=== PATIENT | female | born 1935 | race Caucasian/White ===

== ENCOUNTER 2019-02-16 07:34 | Day surgery (SDC) | payer MEDICARE, OTHER ==
[~2019-02-16 07:34] MED LIST: Lactated Ringers 1,000 ML IV SCH
[2019-02-16] MEDS ORDERED: Lidocaine 1% PF 2 ML SDV INJECT ONE (07:35)
[2019-02-16] MEDS ORDERED: Propofol 200 MG/20 ML SDV IV ONE (07:35)
--- NOTE | 2019-02-16 09:20 | PCM.OPNOTE ---
- General Post-Op/Procedure Note Date of Surgery/Procedure: 02/16/19 Operative Procedure(s): c scope Findings: diverticulosis Pre Op Diagnosis: hx of colon polyp Post-Op Diagnosis: diverticulosis Anesthesia Technique: FLORIAN Primary Surgeon: Juan Carlson Anesthesia Provider: Kristian Schaefer Complications: None Condition: Good Free Text/Narrative:: see dictation
--- NOTE | 2019-02-16 10:25 | OR ---
DATE OF OPERATION: 02/16/2019 SURGEON: Juan Carlson MD PROCEDURE PERFORMED: Colonoscopy. PREOPERATIVE DIAGNOSIS: Personal history of colon polyps. POSTOPERATIVE DIAGNOSES: Redundant colon and diverticulosis. INDICATIONS FOR PROCEDURE: This is an 83-year-old white female who presents for followup scope. She has a personal history of polyps. She was offered and accepted same. DESCRIPTION OF OPERATION: After an excellent IV sedation was administered, digital rectal exam was performed. Flexible colonoscope was inserted and we got to approximately the hepatic flexure. At this point, due to the patient's redundancy of her colon, we were unable to manipulate the scope beyond this point despite maneuvers such as repositioning her and anterior abdominal wall pressure. The scope was then removed. The prep for the area that we examined was excellent. The following findings were noted: Transverse colon was unremarkable. Descending colon and sigmoid, moderate diverticulosis. Rectum and anus, unremarkable. History of her polyp was in the area of the sigmoid. We will be obtaining a contrast study. /[id number] MIKE/MATTHEW
== END 2019-02-16 10:19 | disposition home or self-care (01) ==
LOC: FB.SDS 07:34
PROVIDERS: ATTEND Surgery
DX: Z12.11 Encounter for screening for malignant neoplasm of colon (principal); K57.30 Diverticulosis of large intestine without perforation or abscess without bleeding; Q43.8 Other specified congenital malformations of intestine; E11.42 Type 2 diabetes mellitus with diabetic polyneuropathy; E78.00 Pure hypercholesterolemia, unspecified; M54.16 Radiculopathy, lumbar region; Z88.0 Allergy status to penicillin; Z86.010 Personal history of colon polyps; Z79.84 Long term (current) use of oral hypoglycemic drugs; Z79.899 Other long term (current) drug therapy
CPT/HCPCS: 00811; 82962; G0105; J2001; J2704; J7120

== ENCOUNTER 2021-04-03 14:29 | Observation (INO) | payer MEDICARE, OTHER ==
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
[2021-04-03] MEDS ORDERED: Sodium Chloride 0.9% 1,000 ML IV ONE (14:52)
[2021-04-03] MEDS: Sodium Chloride 0.9% 10 ML Syringe FLUSH PRN ×2 (15:47→16:20)
--- NOTE | 2021-04-03 15:55 | CT ---
INDICATION: Confusion. CT HEAD WITHOUT CONTRAST: Spiral 3.75 mm axial sections were obtained through the brain without contrast with axial, sagittal and coronal reconstructions 04/03/21 and compared with previous examination dated 03/26/11. Total exam DLP was 1373.85 milligray-cm. Nasal septal deviation to the right is noted. For the most part, the paranasal sinuses were well aerated with one anteriorly located left ethmoidal air cell showing thickening of the lining. The mastoid air cells were well aerated. No cranial abnormality was identified. The orbits appear to be intact. No shift of midline structures was noted. Mildly progressive white matter changes compatible with mild microvascular disease are noted, although other cause of leukoencephalopathy cannot be excluded. No other abnormal areas of density were identified. Internal carotid artery calcifications are noted. Ventricles are prominent especially the left compatible with moderate degree of central atrophy. Slightly increased prominence of the ventricles is noted compared with the previous study compatible with mild degree of progression of central atrophy. No other abnormal areas of density were identified. No bleeding site or hematoma was seen. IMPRESSION: 1. Cerebrovascular disease with white matter changes compatible with a mild degree of microvascular disease - slightly progressive. 2. Slightly progressive moderate central atrophy - ventricles are again noted to be asymmetrical - the left lateral ventricle is larger which could represent slightly more severe atrophy on the left, but also could represent an anatomic variant. 3. No acute intracranial abnormality. Report was called to Dr. Coughlin at 1539 hours 04/03/21. [facility]
[2021-04-03] MEDS ORDERED: cefTRIAXone 1 GM in Sodium Chloride 0.9% 50 ML IV ONE (16:10)
[2021-04-03] MEDS ORDERED: Acetaminophen 325 MG Tab PO PRN (17:55)
[2021-04-03] MEDS ORDERED: Ondansetron 4 MG/2 ML SDV IV PRN (17:55)
[2021-04-03] MEDS: Sodium Chloride 0.9% 1,000 ML IV SCH (18:13)
[2021-04-04] MEDS: Sodium Chloride 0.9% 1,000 ML IV SCH (03:36)
[2021-04-04] MEDS ORDERED: SEMAGLUTIDE SQ SCH (09:30)
[2021-04-04] MEDS ORDERED: Sulfamethoxazole/Trimethoprim 400-80 MG Tab PO SCH (10:00)
[2021-04-04] MEDS ORDERED: metFORMIN 1,000 MG Tab *PTOM PO SCH (10:00)
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
[2021-04-04] MEDS ORDERED: PREGABALIN 150 MG PO SCH (21:00)
== END 2021-04-04 11:40 | disposition home or self-care (01) ==
LOC: FB.ED 14:29 → FB.MS 18:04
PROVIDERS: ADMIT Emergency Medicine; ATTEND Family Medicine
DX: R41.0 Disorientation, unspecified (principal); N39.0 Urinary tract infection, site not specified; R53.1 Weakness; E86.0 Dehydration; E78.5 Hyperlipidemia, unspecified; E11.9 Type 2 diabetes mellitus without complications; G60.9 Hereditary and idiopathic neuropathy, unspecified; R41.89 Other symptoms and signs involving cognitive functions and awareness; M48.061 Spinal stenosis, lumbar region without neurogenic claudication; M19.90 Unspecified osteoarthritis, unspecified site; E66.9 Obesity, unspecified; Z68.25 Body mass index [BMI] 25.0-25.9, adult; Z79.84 Long term (current) use of oral hypoglycemic drugs; Z79.899 Other long term (current) drug therapy; Z98.890 Other specified postprocedural states; Z88.0 Allergy status to penicillin; Z86.010 Personal history of colon polyps
CPT/HCPCS: 36415; 70450; 80048; 80053; 81001; 83735; 84484; 85025; 86140; 87040; 87086; 93005; 96374; 99285; A9270; J0696; J7030; U0002; G0378

== ENCOUNTER 2023-01-12 10:09 | Inpatient (IN) | payer MEDICARE ==
[2023-01-12] MEDS: Sodium Chloride 0.9% 10 ML Syringe FLUSH PRN ×3 (10:27→15:55)
[2023-01-12 10:58] LABS: BASOPHILS PERCENT AUTO 0.5 % (0.2-1.5); EOSINOPHILS PERCENT AUTO 0.1 % (0.6-8.1); HEMATOCRIT 43.2 % (34.2-48.2); HEMOGLOBIN 14.5 g/dL (11.4-15.5); LYMPHOCYTES ABSOLUTE AUTO 1.2 x10-3/uL (1.0-4.4); LYMPHOCYTES PERCENT AUTO 11.9 % (18.4-52.1); MEAN CORPUSCULAR HEMOGLOBIN 29.5 pg (23.9-33.9); MEAN CORPUSCULAR HGB CONC 33.5 g/dL (31.9-34.8); MEAN CORPUSCULAR VOLUME 87.9 fL (76.7-100.5); MEAN PLATELET VOLUME 8.5 fL (7.1-12.4); MONOCYTES ABSOLUTE AUTO 0.6 x10-3/uL (0.3-1.0); MONOCYTES PERCENT AUTO 6.2 % (4.4-15.7); NEUTROPHILS PERCENT AUTO 81.3 % (30.8-76.2); PLATELET COUNT,PLT 261 x10(3)uL (151-488); RED BLOOD CELL COUNT 4.91 x10(6)uL (3.60-5.20); RED CELL DISTRIBUTION WIDTH 14.7 % (12.3-16.5); WHITE BLOOD CELL COUNT,WBC 9.8 x10-3/uL (3.0-10.3)
[2023-01-12 11:01] LABS: BLOOD UREA NITROGEN,BUN 20 mg/dL (7-18); CALCIUM 9.2 mg/dL (8.6-10.2); CARBON DIOXIDE,CO2 32 mmol/L (21-32); CHLORIDE,CL 99 mmol/L (100-110); CREATININE 0.8 mg/dL (0.55-1.02); EST CRCL DRUG DOSING (CG) 43.59 mL/min; ESTIMATED GFR 72 mL/min (>60); GLUCOSE RANDOM 240 mg/dL (80-116); POTASSIUM,K 4.3 mmol/L (3.5-5.3); SODIUM,NA 139 mmol/L (135-145)
[2023-01-12 11:04] LABS: BASE EXCESS VENOUS,POC 5 mmol/L (-2 - 3+); PCO2 VENOUS,POC 46 mmHg (41-51); PH VENOUS,POC 7.43 pH Units (7.32-7.43)
[2023-01-12 11:06] LABS: A/G RATIO 1.1; ALANINE AMINOTRANSFERASE,ALT 31 U/L (12-36); ALBUMIN 3.8 g/dL (3.2-4.6); ALKALINE PHOSPHATASE 126 IU/L (56-112); ASPARTATE AMNIOTRANSFERASE,AST 18 IU/L (5-25); BILIRUBIN TOTAL 0.6 mg/dL (0.1-1.3); PROTEIN TOTAL,TP 7.4 g/dL (6.0-8.0)
[2023-01-12 11:09] LABS: MAGNESIUM 1.2 mg/dL (1.8-2.5); TROPONIN I 5.6 pg/mL (4.0-60.3)
[2023-01-12 11:11] LABS: C-REACTIVE PROTEIN 5.3 mg/dL (0.5-0.9)
[2023-01-12] MEDS ORDERED: Sodium Chloride 0.9% 500 ML IV ONE (11:25)
[2023-01-12 11:26] LABS: CORONAVIRUS COVID-19 NAA NEGATIVE (NEGATIVE); INFLUENZA A NAA NEGATIVE (NEGATIVE); INFLUENZA B NAA NEGATIVE (NEGATIVE)
[2023-01-12 11:41] LABS: BILIRUBIN,URINE NEGATIVE (NEGATIVE); GLUCOSE,URINE 250 mg/dL (NORMAL); KETONES,URINE 15 mg/dL (NEGATIVE); LEUKOCYTE ESTERASE,URINE NEGATIVE (NEGATIVE); NITRITE,URINE NEGATIVE (NEGATIVE); OCCULT BLOOD,URINE NEGATIVE (NEGATIVE); PROTEIN,URINE NEGATIVE (NEGATIVE); UROBILINOGEN,URINE NORMAL (NEGATIVE)
[2023-01-12 11:42] LABS: APPEARANCE,URINE CLEAR (CLEAR); BACTERIA,URINE OCCASIONAL (NS); COLOR,URINE YELLOW (YELLOW); RBC,URINE 0-5 (0-5); SQUAMOUS EPITHELIAL CELLS,UR FEW (NS,R,O); WBC,URINE 0-5 (0-5)
[2023-01-12] MEDS ORDERED: Iopamidol 755 Mg/ML 100 ML Bottle IV ONE (12:00)
[2023-01-12] MEDS ORDERED: Ibuprofen 200 MG Tab PO PRN (13:14)
[2023-01-12] MEDS ORDERED: cefTRIAXone 1 GM in Sodium Chloride 0.9% 50 ML IV SCH (13:15)
[2023-01-12] MEDS ORDERED: Acetaminophen 500 MG Tab PO PRN (13:15)
[2023-01-12] MEDS ORDERED: 50% Dextrose in Water 50 ML Syringe IVPUSH PRN (13:16)
[2023-01-12] MEDS ORDERED: Glucagon,Human Recombinant 1 MG Vial IM PRN (13:16)
[2023-01-12] MEDS: cefTRIAXone 1 GM Vial IVPUSH SCH (14:36)
[2023-01-12] MEDS: Azithromycin 500 MG in Sodium Chloride 0.9% 250 ML IV SCH (14:45)
[2023-01-12] MEDS ORDERED: Magnesium Sulfate/Water 2 GM in Premix Bag 1 BAG IV ONE (15:00)
[2023-01-12] MEDS: Insulin Lispro 100 Unit/ML 3 ML KwikPen SUBCUT SCH ×2 (18:45→19:32)
[2023-01-12] MEDS: Nystatin Topical Powder 15 GM Bottle TOP SCH ×2 (19:48→23:59)
[2023-01-12] MEDS: guaiFENesin 600 MG Tab.ER PO SCH (20:03)
[2023-01-12] MEDS: Ibuprofen 400 MG Tab PO SCH (20:03)
[2023-01-12] MEDS: Saccharomyces Boulardii (Probiotic) 250 MG Cap PO SCH (20:07)
[2023-01-12] MEDS: Pregabalin 75 MG Cap PO SCH (20:08)
[2023-01-13] MEDS: Pregabalin 75 MG Cap PO SCH ×3 (00:26→20:16)
[2023-01-13 06:51] LABS: BLOOD UREA NITROGEN,BUN 17 mg/dL (7-18); BUN/CREATININE RATIO 21.3 (9-20); CALCIUM 8.9 mg/dL (8.6-10.2); CARBON DIOXIDE,CO2 33 mmol/L (21-32); CHLORIDE,CL 98 mmol/L (100-110); CREATININE 0.8 mg/dL (0.55-1.02); EST CRCL DRUG DOSING (CG) 43.59 mL/min; ESTIMATED GFR 72 mL/min (>60); GLUCOSE RANDOM 266 mg/dL (80-116); MAGNESIUM 1.8 mg/dL (1.8-2.5); POTASSIUM,K 3.6 mmol/L (3.5-5.3); SODIUM,NA 137 mmol/L (135-145)
[2023-01-13 06:53] LABS: BASOPHILS PERCENT AUTO 0.4 % (0.2-1.5); EOSINOPHILS PERCENT AUTO 0.1 % (0.6-8.1); HEMATOCRIT 38.1 % (34.2-48.2); HEMOGLOBIN 13.2 g/dL (11.4-15.5); LYMPHOCYTES ABSOLUTE AUTO 1.7 x10-3/uL (1.0-4.4); LYMPHOCYTES PERCENT AUTO 18.6 % (18.4-52.1); MEAN CORPUSCULAR HGB CONC 34.6 g/dL (31.9-34.8); MEAN CORPUSCULAR VOLUME 86.8 fL (76.7-100.5); MONOCYTES ABSOLUTE AUTO 0.6 x10-3/uL (0.3-1.0); MONOCYTES PERCENT AUTO 6.5 % (4.4-15.7); NEUTROPHILS ABSOLUTE AUTO 6.8 x10-3/uL (1.5-6.3); NEUTROPHILS PERCENT AUTO 74.4 % (30.8-76.2); PLATELET COUNT,PLT 202 x10(3)uL (151-488); RED BLOOD CELL COUNT 4.39 x10(6)uL (3.60-5.20); RED CELL DISTRIBUTION WIDTH 14.3 % (12.3-16.5); WHITE BLOOD CELL COUNT,WBC 9.2 x10-3/uL (3.0-10.3)
[2023-01-13] MEDS: Insulin Lispro 100 Unit/ML 3 ML KwikPen SUBCUT SCH ×3 (08:40→17:54)
[2023-01-13] MEDS: Magnesium Oxide 400 MG Tab PO SCH (08:41)
[2023-01-13] MEDS: Ibuprofen 400 MG Tab PO SCH ×2 (08:41→20:17)
[2023-01-13] MEDS: guaiFENesin 600 MG Tab.ER PO SCH ×2 (08:41→20:17)
[2023-01-13] MEDS: Calcium Carbonate 500 MG Tablet PO SCH (08:42)
[2023-01-13] MEDS: Cyanocobalamin (Vitamin B12) 500 MCG Tab PO SCH (08:42)
[2023-01-13] MEDS: Mirabegron 25 MG Tab Extended Release PO SCH (08:42)
[2023-01-13] MEDS: Nystatin Topical Powder 15 GM Bottle TOP SCH ×2 (08:42→20:15)
[2023-01-13] MEDS: Sodium Chloride 0.9% 10 ML Syringe FLUSH PRN ×2 (12:58→13:05)
[2023-01-13] MEDS: cefTRIAXone 1 GM Vial IVPUSH SCH (12:58)
[2023-01-13] MEDS: Azithromycin 500 MG in Sodium Chloride 0.9% 250 ML IV SCH (13:06)
[2023-01-13] MEDS: Saccharomyces Boulardii (Probiotic) 250 MG Cap PO SCH (20:16)
[2023-01-13] MEDS ORDERED: Glucagon,Human Recombinant 1 MG Vial IM PRN (20:30)
[2023-01-13] MEDS ORDERED: Insulin Lispro 100 Unit/ML 3 ML KwikPen SUBCUT STA (20:30)
[2023-01-13] MEDS ORDERED: 50% Dextrose in Water 50 ML Syringe IVPUSH PRN (20:30)
[2023-01-14 06:44] LABS: BASOPHILS PERCENT AUTO 0.5 % (0.2-1.5); EOSINOPHILS ABSOLUTE AUTO 0.1 x10-3/uL (0.0-0.8); EOSINOPHILS PERCENT AUTO 1.5 % (0.6-8.1); HEMOGLOBIN 12.4 g/dL (11.4-15.5); LYMPHOCYTES ABSOLUTE AUTO 1.3 x10-3/uL (1.0-4.4); LYMPHOCYTES PERCENT AUTO 24.5 % (18.4-52.1); MEAN CORPUSCULAR HEMOGLOBIN 29.4 pg (23.9-33.9); MEAN CORPUSCULAR HGB CONC 33.4 g/dL (31.9-34.8); MEAN CORPUSCULAR VOLUME 88.1 fL (76.7-100.5); MEAN PLATELET VOLUME 7.9 fL (7.1-12.4); MONOCYTES ABSOLUTE AUTO 0.5 x10-3/uL (0.3-1.0); MONOCYTES PERCENT AUTO 8.9 % (4.4-15.7); NEUTROPHILS ABSOLUTE AUTO 3.4 x10-3/uL (1.5-6.3); NEUTROPHILS PERCENT AUTO 64.6 % (30.8-76.2); PLATELET COUNT,PLT 214 x10(3)uL (151-488); RED CELL DISTRIBUTION WIDTH 14.7 % (12.3-16.5); WHITE BLOOD CELL COUNT,WBC 5.2 x10-3/uL (3.0-10.3)
[2023-01-14] MEDS: Insulin Lispro 100 Unit/ML 3 ML KwikPen SUBCUT SCH ×3 (08:52→17:52)
[2023-01-14] MEDS: Cyanocobalamin (Vitamin B12) 500 MCG Tab PO SCH (08:54)
[2023-01-14] MEDS: Mirabegron 25 MG Tab Extended Release PO SCH (08:54)
[2023-01-14] MEDS: Magnesium Oxide 400 MG Tab PO SCH (08:54)
[2023-01-14] MEDS: Pregabalin 75 MG Cap PO SCH ×2 (08:54→20:14)
[2023-01-14] MEDS: guaiFENesin 600 MG Tab.ER PO SCH ×2 (08:55→20:14)
[2023-01-14] MEDS: Ibuprofen 400 MG Tab PO SCH ×2 (08:55→20:15)
[2023-01-14] MEDS: Calcium Carbonate 500 MG Tablet PO SCH (08:55)
[2023-01-14] MEDS: Nystatin Topical Powder 15 GM Bottle TOP SCH ×2 (08:55→20:17)
[2023-01-14] MEDS: Sodium Chloride 0.9% 10 ML Syringe FLUSH PRN ×3 (13:35→14:52)
[2023-01-14] MEDS: cefTRIAXone 1 GM Vial IVPUSH SCH (13:35)
[2023-01-14] MEDS: Azithromycin 500 MG in Sodium Chloride 0.9% 250 ML IV SCH (13:38)
[2023-01-14] MEDS: Saccharomyces Boulardii (Probiotic) 250 MG Cap PO SCH (20:20)
[2023-01-15] MEDS: metFORMIN 1,000 MG Tab PO SCH ×2 (08:11→17:51)
[2023-01-15] MEDS: Insulin Lispro 100 Unit/ML 3 ML KwikPen SUBCUT SCH ×3 (08:12→17:51)
[2023-01-15] MEDS: Pregabalin 75 MG Cap PO SCH ×2 (08:13→20:24)
[2023-01-15] MEDS: Mirabegron 25 MG Tab Extended Release PO SCH (08:14)
[2023-01-15] MEDS: Magnesium Oxide 400 MG Tab PO SCH (08:14)
[2023-01-15] MEDS: guaiFENesin 600 MG Tab.ER PO SCH ×2 (08:15→20:24)
[2023-01-15] MEDS: Ibuprofen 400 MG Tab PO SCH ×2 (08:15→20:24)
[2023-01-15] MEDS: Nystatin Topical Powder 15 GM Bottle TOP SCH ×2 (08:15→20:25)
[2023-01-15] MEDS: Cyanocobalamin (Vitamin B12) 500 MCG Tab PO SCH (08:16)
[2023-01-15] MEDS: Calcium Carbonate 500 MG Tablet PO SCH (08:16)
[2023-01-15] MEDS ORDERED: Azithromycin 500 MG Tab PO SCH (14:00)
[2023-01-15] MEDS: Saccharomyces Boulardii (Probiotic) 250 MG Cap PO SCH (20:23)
[2023-01-15] MEDS: Cefdinir 300 MG Cap PO SCH (20:25)
[2023-01-16] MEDS: Pregabalin 75 MG Cap PO SCH (08:08)
[2023-01-16] MEDS: guaiFENesin 600 MG Tab.ER PO SCH (08:08)
[2023-01-16] MEDS: Calcium Carbonate 500 MG Tablet PO SCH (08:08)
[2023-01-16] MEDS: Ibuprofen 400 MG Tab PO SCH (08:09)
[2023-01-16] MEDS: Cyanocobalamin (Vitamin B12) 500 MCG Tab PO SCH (08:09)
[2023-01-16] MEDS: Nystatin Topical Powder 15 GM Bottle TOP SCH (08:10)
[2023-01-16] MEDS: metFORMIN 1,000 MG Tab PO SCH (08:11)
[2023-01-16] MEDS: Insulin Lispro 100 Unit/ML 3 ML KwikPen SUBCUT SCH ×2 (08:11→11:42)
[2023-01-16] MEDS: Mirabegron 25 MG Tab Extended Release PO SCH (08:12)
[2023-01-16] MEDS: Cefdinir 300 MG Cap PO SCH (09:19)
[2023-01-16] MEDS ORDERED: Magnesium Oxide 400 MG Tab PO SCH (12:00)
[2023-01-16] MEDS ORDERED: Azithromycin 500 MG Tab PO ONE (12:30)
== END 2023-01-16 12:48 | disposition home health service (06) | DRG 193 ==
LOC: FB.ED 10:09 → FB.MS 12:52
PROVIDERS: ADMIT Family Medicine; ATTEND Family Medicine
DX: J18.9 Pneumonia, unspecified organism (principal); J96.01 Acute respiratory failure with hypoxia; E83.42 Hypomagnesemia; E86.0 Dehydration; Z20.822 Contact with and (suspected) exposure to COVID-19; E11.42 Type 2 diabetes mellitus with diabetic polyneuropathy; R32 Unspecified urinary incontinence; Z66 Do not resuscitate; E11.9 Type 2 diabetes mellitus without complications; D64.9 Anemia, unspecified; H54.7 Unspecified visual loss; M19.90 Unspecified osteoarthritis, unspecified site; Z86.16 Personal history of COVID-19; Z90.710 Acquired absence of both cervix and uterus; E78.00 Pure hypercholesterolemia, unspecified; Z90.49 Acquired absence of other specified parts of digestive tract; E66.9 Obesity, unspecified; Z79.84 Long term (current) use of oral hypoglycemic drugs; Z79.899 Other long term (current) drug therapy
CPT/HCPCS: 0240U; 36415; 70450; 71045; 71275; 80048; 80053; 81001; 82947; 83605; 83735; 83880; 84484; 85025; 85379; 86140; 87040; 87651; 93005; 94150; 94669; 97165; 97530; 97535; 99285; 99223; 99232; 99233; 99238; A9270-GY; C1758; J0456; J0696; J1815; J3475; J3490; J7040; J7050; Q9967